=== PATIENT | female | born 1985 | race Caucasian/White ===

== ENCOUNTER 2018-06-10 20:18 | Observation (INO) | payer OTHER ==
[~2018-06-10] VITALS: Ht 172.7 cm; Wt 97.7 kg
[2018-06-10 20:51] LABS: MICROSCOPIC INDICATED
[2018-06-10 21:00] LABS: AMPHETAMINE SCREEN, URINE Negative (Negative); BARBITURATE SCREEN, URINE Negative (Negative); BENZODIAZEPINE SCREEN, URINE Negative (Negative); CANNABINOID SCREEN, URINE Positive (Negative); COCAINE SCREEN, URINE Negative (Negative); METHADONE SCREEN, URINE Negative (Negative); OPIATE SCREEN, URINE Negative (Negative)
[2018-06-10] MEDS ORDERED: TERBUTALINE 1 MG/ML, 1ML ONE (21:20)
[2018-06-10] MEDS ORDERED: D5%-LACTATED RINGERS 1,000 ML IV SCH (21:30)
[2018-06-10] MEDS ORDERED: TERBUTALINE 1 MG/ML, 1ML IV ONE (21:30)
[2018-06-10 21:56] LABS: MEAN CORPUSCULAR HGB CONC 34.4 g/dL (32.4-35.8); MEAN CORPUSCULAR VOLUME 98.9 fL (80-100); PLATELET COUNT 338 x10^3/uL (130-400); RED BLOOD COUNT 3.64 x10^6/uL (3.82-5.3); RED CELL DISTRIBUTION WIDTH 12.7 % (9.6-15.2)
[2018-06-10] MEDS ORDERED: CALCIUM CARBONATE 500 MG TAB.CHEW PO PRN (22:00)
[2018-06-10] MEDS ORDERED: CALCIUM CARBONATE 500 MG TAB.CHEW ONE (22:01)
[2018-06-10 23:30] VITALS: BP 95/50
[2018-06-11] MEDS ORDERED: D5%-LACTATED RINGERS 1,000 ML IV SCH ×2 (21:30)
== END 2018-06-11 01:30 | disposition home or self-care (01) ==
LOC: LDOP 20:18 → LDIP 22:10
PROVIDERS: ADMIT Obstetrics & Gynecology; ATTEND Obstetrics & Gynecology
DX: O26.893 Other specified pregnancy related conditions, third trimester (principal); R42 Dizziness and giddiness; Z3A.32 32 weeks gestation of pregnancy
CPT/HCPCS: 36415; 59025; 80307; 81001; 81003; 85027; 86592; 86762; 86850; 86900; 87086; 87340; 87806; 96361; 96374; G0378; J2790; J3105; J7121; 96360; 96372; G0475

== ENCOUNTER 2018-07-24 06:09 | Inpatient (IN) | payer SELFPAY ==
[~2018-07-24] VITALS: Ht 172.7 cm; Wt 104.5 kg
[2018-07-24] MEDS ORDERED: OXYTOCIN 30U/ 0.9% NaCL 500ML 500 ML IV PRN (06:10)
[2018-07-24] MEDS ORDERED: OXYTOCIN 30U/ 0.9% NaCL 500ML 500 ML IV ONE (06:10)
[2018-07-24] MEDS ORDERED: AMPICILLIN 2 GM in SODIUM CHLORIDE 0.9% 100 ML IVPB STA (06:10)
[2018-07-24 06:21] VITALS: BP 139/83
[2018-07-24] MEDS ORDERED: FENTANYL PF 100 MCG/2ML IVPush PRN (06:30)
[2018-07-24] MEDS ORDERED: ONDANSETRON 2MG/ML, 2ML IVPush PRN (06:30)
[2018-07-24] MEDS ORDERED: FENTANYL PF 100 MCG/2ML IV PRN (06:30)
[2018-07-24] MEDS ORDERED: TERBUTALINE 1 MG/ML, 1ML IVPush PRN ×2 (06:30)
[2018-07-24] MEDS ORDERED: CALCIUM CARBONATE 500 MG TAB.CHEW PO PRN (06:30)
[2018-07-24] MEDS: LACTATED RINGERS 1,000 ML IV SCH ×2 (06:42→16:35)
[2018-07-24] MEDS ORDERED: OXYTOCIN 30U/ 0.9% NaCL 500ML 500 ML ONE ×2 (06:46→22:29)
[2018-07-24 06:49] LABS: MICROSCOPIC INDICATED
[2018-07-24 06:57] LABS: BASOPHILS # (AUTO) 0.13 x10^3/uL (0-0.1); BASOPHILS % (AUTO) 1 % (0-1); EOSINOPHILS # (AUTO) 0.13 x10^3/uL (0-0.4); EOSINOPHILS % (AUTO) 1 % (1-7); LYMPHOCYTES # (AUTO) 2.33 x10^3/uL (1-3.4); LYMPHOCYTES % (AUTO) 19 % (22-44); MD NO; MEAN CORPUSCULAR HEMOGLOBIN 33.4 pg (27.0-34.8); MEAN CORPUSCULAR HGB CONC 33.9 g/dL (32.4-35.8); MEAN CORPUSCULAR VOLUME 98.5 fL (80-100); MEAN PLATELET VOLUME 8.6 fL (7.4-10.4); MONOCYTES # (AUTO) 0.34 x10^3/uL (0.2-0.8); MONOCYTES % (AUTO) 3 % (2-9); NEUTROPHILS # (AUTO) 9.25 x10^3/uL (1.8-6.8); NEUTROPHILS % (AUTO) 76 % (42-75); PLATELET COUNT 312 x10^3/uL (130-400); RED BLOOD COUNT 3.55 x10^6/uL (3.82-5.3); RED CELL DISTRIBUTION WIDTH 13.5 % (9.6-15.2)
[2018-07-24 07:01] LABS: AMPHETAMINE SCREEN, URINE Negative (Negative); BARBITURATE SCREEN, URINE Negative (Negative); BENZODIAZEPINE SCREEN, URINE Negative (Negative); CANNABINOID SCREEN, URINE Positive (Negative); COCAINE SCREEN, URINE Negative (Negative); METHADONE SCREEN, URINE Negative (Negative); OPIATE SCREEN, URINE Negative (Negative); PROTEIN/CREATININE RATIO,URINE 121 (0-200); TOTAL PROTEIN,URINE RANDOM 20 mg/dL (0-12)
[2018-07-24 07:10] LABS: ALANINE AMINOTRANSFERASE 10 U/L (12-78); ALBUMIN 2.3 g/dL (3.4-5.0); ANION GAP 9 mmol/L (5-15); CALCIUM 8.7 mg/dL (8.5-10.1); CHLORIDE 111 mmol/L (98-107); CREATININE 0.65 mg/dL (0.55-1.02)
[2018-07-24 07:13] LABS: ALKALINE PHOSPHATASE 114 U/L (45-117); TOTAL PROTEIN 6.5 g/dL (6.4-8.2)
[2018-07-24] MEDS ORDERED: NEWBORN KIT ONE (07:25)
[2018-07-24] MEDS ORDERED: FENTANYL/BUPIV./NS/PF 250 ML EPIDCONT SCH ×2 (07:32→17:41)
[2018-07-24 07:40] LABS: BILIRUBIN, DIRECT < 0.1 mg/dL (0.1-0.2); BILIRUBIN,TOTAL 0.1 mg/dL (0.2-1.0)
[2018-07-24] MEDS ORDERED: FENTANYL PF 500 MCG, BUPIVACAINE/PF 0.5%, 30ML 62.5 ML in SODIUM CHLORIDE 0.9% 177.5 ML EPIDCONT SCH (08:00)
[2018-07-24] MEDS: NICOTINE 7 MG/24 HR PATCH.TD24 TD SCH (10:40)
[2018-07-24] MEDS: AMPICILLIN 1 GM in SODIUM CHLORIDE 0.9% 100 ML IV SCH ×3 (11:01→19:41)
[2018-07-24] MEDS ORDERED: ACETAMINOPHEN 325 MG TABLET ONE (16:56)
[2018-07-24] MEDS ORDERED: BUPIVACAINE 0.25% ONE (17:14)
[2018-07-24] MEDS ORDERED: ACETAMINOPHEN 325 MG TABLET PO PRN ×2 (17:30→22:30)
[2018-07-24] MEDS ORDERED: LACTATED RINGERS 1,000 ML IV SCH (17:41)
[2018-07-24] MEDS ORDERED: EPHEDRINE 50 MG/ML, 1ML IVPush PRN (18:00)
[2018-07-24] MEDS ORDERED: LACTATED RINGERS 1,000 ML IVBOLUS PRN (18:00)
[2018-07-24] MEDS ORDERED: CALCIUM CARBONATE 500 MG TAB.CHEW ONE (19:56)
[2018-07-24] MEDS ORDERED: MISOPROSTOL 200 MCG TABLET ONE (22:03)
[2018-07-24] MEDS ORDERED: IBUPROFEN 600 MG TABLET ONE (22:28)
[2018-07-24] MEDS ORDERED: MISOPROSTOL 200 MCG TABLET PR ONE (22:30)
[2018-07-24] MEDS ORDERED: METHYLERGONOVINE 0.2 MG/ML IM PRN (22:30)
[2018-07-24] MEDS ORDERED: OXYTOCIN 10 UNITS/ML, 1ML IM PRN (22:30)
[2018-07-24] MEDS ORDERED: CARBOPROST TROMETHAMINE 250 MCG/ML, 1ML IM PRN (22:30)
[2018-07-24] MEDS ORDERED: MISOPROSTOL 200 MCG TABLET PR PRN (22:30)
[2018-07-24] MEDS ORDERED: RHOGAM FROM BLOOD BANK 1 NOTE EA IM/IV ONE (22:30)
[2018-07-24] MEDS ORDERED: ONDANSETRON 2MG/ML, 2ML IV PRN (22:30)
[2018-07-24] MEDS: OXYTOCIN 30U/ 0.9% NaCL 500ML 500 ML IV SCH (22:33)
[2018-07-24] MEDS: IBUPROFEN 600 MG TABLET PO PRN (22:33)
[2018-07-25 00:20] VITALS: BP 119/79
[2018-07-25 04:00] VITALS: BP 112/78
[2018-07-25 06:32] LABS: BASOPHILS # (AUTO) 0.09 x10^3/uL (0-0.1); BASOPHILS % (AUTO) 1 % (0-1); EOSINOPHILS # (AUTO) 0.08 x10^3/uL (0-0.4); EOSINOPHILS % (AUTO) 1 % (1-7); LYMPHOCYTES # (AUTO) 1.68 x10^3/uL (1-3.4); LYMPHOCYTES % (AUTO) 12 % (22-44); MD NO; MEAN CORPUSCULAR HEMOGLOBIN 33.5 pg (27.0-34.8); MEAN CORPUSCULAR HGB CONC 33.9 g/dL (32.4-35.8); MEAN CORPUSCULAR VOLUME 98.9 fL (80-100); MEAN PLATELET VOLUME 8.3 fL (7.4-10.4); MONOCYTES # (AUTO) 0.58 x10^3/uL (0.2-0.8); MONOCYTES % (AUTO) 4 % (2-9); NEUTROPHILS # (AUTO) 11.77 x10^3/uL (1.8-6.8); NEUTROPHILS % (AUTO) 83 % (42-75); PLATELET COUNT 263 x10^3/uL (130-400); RED BLOOD COUNT 3.36 x10^6/uL (3.82-5.3); RED CELL DISTRIBUTION WIDTH 13.7 % (9.6-15.2)
[2018-07-25 07:40] VITALS: BP 120/77
[2018-07-25] MEDS: OXYTOCIN 30U/ 0.9% NaCL 500ML 500 ML IV SCH ×2 (08:18→18:18)
[2018-07-25] MEDS: IBUPROFEN 600 MG TABLET PO PRN ×3 (08:44→21:10)
[2018-07-25] MEDS: DOCUSATE 100 MG CAPSULE PO PRN ×2 (08:44→21:10)
[2018-07-25] MEDS: PRENATAL VIT/IRON/FA 1 EACH TABLET PO SCH (08:44)
[2018-07-25] MEDS: OXYcodone/APAP 5/325MG TABLET PO PRN ×4 (08:47→21:10)
[2018-07-25] MEDS: NICOTINE 7 MG/24 HR PATCH.TD24 TD SCH (11:31)
[2018-07-25 12:15] VITALS: BP 123/71
[2018-07-25 16:00] VITALS: BP 105/75
[2018-07-25 21:46] VITALS: BP 125/86
[2018-07-26] MEDS: OXYcodone/APAP 5/325MG TABLET PO PRN ×3 (01:08→11:21)
[2018-07-26] MEDS: IBUPROFEN 600 MG TABLET PO PRN ×2 (05:12→11:19)
[2018-07-26 07:49] VITALS: BP 114/74
[2018-07-26] MEDS: PRENATAL VIT/IRON/FA 1 EACH TABLET PO SCH (11:19)
[2018-07-26] MEDS: DOCUSATE 100 MG CAPSULE PO PRN (11:23)
[2018-07-26] MEDS ORDERED: DIPH,PERTUSS(ACELL),TET VAC/PF NC IM-VACC ONE (11:30)
[2018-07-26] MEDS ORDERED: OXYC-302 PO (11:48)
[2018-07-26] MEDS ORDERED: IBUP-1222 PO (11:49)
[2018-07-26] MEDS ORDERED: SENN-52 PO (11:50)
[2018-07-26 13:00] VITALS: BP 133/84
== END 2018-07-26 15:50 | disposition home or self-care (01) | DRG 807 ==
LOC: LDIP 06:09 → 2NW 07-25 00:21
PROVIDERS: ADMIT Obstetrics & Gynecology; ATTEND Obstetrics & Gynecology
PROC: 10E0XZZ Delivery of Products of Conception, External Approach (ICD-10-PCS; principal; 2018-07-24)
PROC: 0KQM0ZZ Repair Perineum Muscle, Open Approach (ICD-10-PCS; 2018-07-24)
PROC: 10907ZC Drainage of Amniotic Fluid, Therapeutic from Products of Conception, Via Natural or Artificial Opening (ICD-10-PCS; 2018-07-24)
PROC: 3E0R3BZ Introduction of Anesthetic Agent into Spinal Canal, Percutaneous Approach (ICD-10-PCS; 2018-07-24)
PROC: 00HU33Z Insertion of Infusion Device into Spinal Canal, Percutaneous Approach (ICD-10-PCS; 2018-07-24)
DX: O13.4 Gestational [pregnancy-induced] hypertension without significant proteinuria, complicating childbirth (principal); Z37.0 Single live birth; O99.824 Streptococcus B carrier state complicating childbirth; O99.334 Smoking (tobacco) complicating childbirth; F17.210 Nicotine dependence, cigarettes, uncomplicated; O32.2XX0 Maternal care for transverse and oblique lie, not applicable or unspecified; Z3A.38 38 weeks gestation of pregnancy; O70.1 Second degree perineal laceration during delivery
CPT/HCPCS: 36415; J2790; 80053; 80307; 81001; 82248; 82570; 84156; 84550; 85025; 85461; 86850; 86900; 90715; G0378; J0290; J2590; J7120